=== PATIENT | male | born 1950 | race Caucasian/White ===

== ENCOUNTER 2022-06-23 09:21 | Emergency (ER) | payer OTHER, MEDICARE ==
[2022-06-23 09:36] VITALS: RESP 16; BMI 28.9
[2022-06-23 09:53] LABS: EPITHELIAL CELLS RARE /hpf
[2022-06-23] MEDS ORDERED: ACETAMINOPHEN 1000 MG/100 ML BAG IVPB ONE (10:05)
[2022-06-23] MEDS ORDERED: FAMOTIDINE 20 MG/50 ML IVPB 20 MG/50 ML MG IVPB ONE ×2 (10:13→10:39)
[2022-06-23] MEDS ORDERED: ONDANSETRON 4 MG/2 ML VIAL IVPUSH ONE (10:13)
[2022-06-23] MEDS ORDERED: ONDANSETRON 4 MG/2 ML VIAL ONE (10:38)
[2022-06-23] MEDS ORDERED: ACETAMINOPHEN INJECTION 100 ML IVPB ONE (10:39)
[2022-06-23 11:30] LABS: HEMATOCRIT 35.7 % (35.4-49); HEMOGLOBIN 12.4 G/dL (11.7-16.9); MCH 33.2 pg (25.7-33.7); MCHC 34.8 g/dl (32.0-35.9); MEAN CELL VOLUME 95.1 fl (80-96); MEAN PLT VOLUME 8.3 fl (7.5-11.1); PLATELET COUNT 279.4 10^3/uL (134-434); RBC 3.75 10^6/uL (4.00-5.60); RDW 13.8 % (11.9-15.9); WHITE BLOOD COUNT 8.2 10^3/uL (4.0-10.8)
[2022-06-23 11:45] LABS: CALCIUM 9.2 mg/dl (8.5-10); POTASSIUM 4.3 mmol/L (3.5-5.1)
[2022-06-23 11:48] LABS: ALBUMIN 3.4 g/dl (3.4-5.0); BILIRUBIN,TOTAL 1.8 mg/dl (0.2-1); CREATININE 1.4 mg/dl (0.55-1.3); TOT PROT 6.5 g/dl (6.4-8.2)
[2022-06-23] MEDS ORDERED: PIPERACILLIN/TAZOB 4.5 GM 4.5 GM/100 ML BAG IVPB ONE (12:49)
[2022-06-23] MEDS ORDERED: PIPERACILLIN/TAZOBACTAM 4.5 GM VIAL IVPB ONE (13:18)
[2022-06-23 14:34] VITALS: BP 140/84; PULSE 66; TEMP 97.9
== END 2022-06-23 19:10 | disposition short-term general hospital (02) ==
LOC: FER 09:21
PROC: 3E033GC Introduction of Other Therapeutic Substance into Peripheral Vein, Percutaneous Approach (ICD-10-PCS; principal; 2022-06-23)
PROC: 3E03329 Introduction of Other Anti-infective into Peripheral Vein, Percutaneous Approach (ICD-10-PCS; 2022-06-23)
PROC: 3E033GC Introduction of Other Therapeutic Substance into Peripheral Vein, Percutaneous Approach (ICD-10-PCS; 2022-06-23)
PROC: 3E033GC Introduction of Other Therapeutic Substance into Peripheral Vein, Percutaneous Approach (ICD-10-PCS; 2022-06-23)
DX: R10.11 Right upper quadrant pain (principal); R11.10 Vomiting, unspecified; R19.7 Diarrhea, unspecified; R94.5 Abnormal results of liver function studies; K81.9 Cholecystitis, unspecified; Z20.822 Contact with and (suspected) exposure to COVID-19
CPT/HCPCS: 0241U-QW; 36415; 71045-TC-FY; 76705-TC; 80053; 81003; 81015; 83605; 83690; 84484; 85027; 93005; 99285-25

== ENCOUNTER 2022-09-30 12:58 | Inpatient (IN) | payer OTHER, MEDICARE ==
[2022-09-30] MEDS ORDERED: SODIUM CHLORIDE 1,000 ML IV ONE (13:56)
[2022-09-30 14:25] LABS: INR 1.27 (0.83-1.09); PROTHROMBIN TIME (PATIENT) 14.7 SEC (9.7-13.0)
[2022-09-30 14:27] LABS: HEMATOCRIT 25.4 % (35.4-49); HEMOGLOBIN 8.4 G/dL (11.7-16.9); MCH 30.9 pg (25.7-33.7); MEAN CELL VOLUME 93.6 fl (80-96); MEAN PLT VOLUME 7.4 fl (7.5-11.1); PLATELET COUNT 225.4 10^3/uL (134-434); RBC 2.71 10^6/uL (4.00-5.60); RDW 18.3 % (11.9-15.9); WHITE BLOOD COUNT 7.6 10^3/uL (4.0-10.8)
[2022-09-30 14:31] LABS: ALBUMIN 3.2 g/dl (3.4-5.0); BLOOD UREA NITROGEN 34.3 mg/dl (7-18); CALCIUM 8.5 mg/dl (8.5-10.1); CREATININE 1.5 mg/dl (0.6-1.3); MAGNESIUM 1.6 mg/dL (1.8-2.4); POTASSIUM 4.1 mmol/L (3.5-5.1); SGOT/AST 49.6 U/L (15-37); SGPT/ALT 54.4 U/L (7-52); TOT PROT 6.1 g/dl (6.4-8.2)
[2022-09-30 14:46] LABS: PLATELET ESTIMATE ADEQUATE
[2022-09-30 15:49] LABS: EPITHELIAL CELLS RARE /hpf
[2022-09-30 15:57] LABS: BILIRUBIN,TOTAL 0.5 mg/dL (0.2-1)
[2022-09-30] MEDS ORDERED: REFRIGERATED ANITBIOTICS ONE (20:35)
[2022-09-30] MEDS ORDERED: DOCUSATE SODIUM 100 MG CAPSULE (FP) PO PRN (20:37)
[2022-09-30] MEDS ORDERED: MAGNESIUM SULFATE IN WATER 2 GM/50 ML IVPB IVPB ONE (20:38)
[2022-09-30] MEDS ORDERED: MAGNESIUM OXIDE 400 MG TABLET (FP) PO ONE (20:38)
[2022-09-30] MEDS: PANTOPRAZOLE 40 MG TABLET PO SCH (21:14)
[2022-09-30] MEDS: SODIUM CHLORIDE 1,000 ML IV SCH (21:15)
[2022-09-30 21:47] LABS: PHOSPHOROUS 3.59 (2.5-4.9)
[2022-10-01] MEDS: CEFTRIAXONE 1 GM in DEXTROSE 5%-WATER - 50 ML IVPB SCH (02:03)
[2022-10-01] MEDS ORDERED: LIPASE/PROTEASE/AMYLASE 36,000 UNIT CAPSULE PO PRN (03:27)
[2022-10-01] MEDS ORDERED: ONDANSETRON *ODT* 4 MG TABLET SL PRN (03:28)
[2022-10-01] MEDS ORDERED: LIPASE/PROTEASE/AMYLASE 36,000 UNIT CAPSULE PO SCH (08:00)
[2022-10-01] MEDS: LIPASE/PROTEASE/AMYLASE 36,000 UNIT CAPSULE PO SCH ×2 (08:43→12:00)
[2022-10-01] MEDS: PANTOPRAZOLE 40 MG TABLET PO SCH ×2 (09:42→21:14)
[2022-10-01] MEDS: FINASTERIDE 5 MG TABLET (FP) PO SCH (09:42)
[2022-10-01] MEDS: ALLOPURINOL 100 MG TABLET (FP) PO SCH (09:42)
[2022-10-01] MEDS ORDERED: OXYBUTYNIN CHLORIDE 5 MG TABLET PO SCH (10:00)
[2022-10-01 10:45] LABS: CALCIUM 8.3 mg/dl (8.5-10.1); CREATININE 1.3 mg/dl (0.6-1.3); MAGNESIUM 1.9 mg/dL (1.8-2.4); PHOSPHOROUS 3.23 (2.5-4.9); POTASSIUM 4.4 mmol/L (3.5-5.1)
[2022-10-01 12:20] LABS: BASO % 0.2 % (0-2.0); EOS % 1.1 % (0-4.5); HEMOGLOBIN 7.8 GM/dL (11.7-16.9); LYMPH % 8.6 % (8-40); MCH 30.6 pg (25.7-33.7); MCHC 33.9 g/dl (32.0-35.9); MEAN CELL VOLUME 90.3 fl (80-96); MEAN PLT VOLUME 7.9 fl (7.5-11.1); MONO % 0.6 % (3.8-10.2); NEUT % 89.5 % (42.8-82.8); PLATELET COUNT 208 10^3/uL (134-434); RBC 2.55 M/mm3 (4.00-5.60); RDW 17.9 % (11.9-15.9)
[2022-10-01] MEDS ORDERED: ZENPEP PO PRN (16:32)
[2022-10-01] MEDS: ZENPEP PO SCH (18:03)
[2022-10-01] MEDS ORDERED: ACETAMINOPHEN 325 MG TABLET (FP) PO PRN (20:37)
[2022-10-01] MEDS: SODIUM CHLORIDE 1,000 ML IV SCH (21:15)
[2022-10-02 09:16] LABS: HEMATOCRIT 23.1 % (35.4-49); HEMOGLOBIN 7.7 G/dL (11.7-16.9); MCH 31.3 pg (25.7-33.7); MCHC 33.4 g/dl (32.0-35.9); MEAN CELL VOLUME 94.1 fl (80-96); MEAN PLT VOLUME 7.2 fl (7.5-11.1); PLATELET COUNT 169.1 10^3/uL (134-434); RBC 2.46 10^6/uL (4.00-5.60); RDW 17.7 % (11.9-15.9); WHITE BLOOD COUNT 4.1 10^3/uL (4.0-10.8)
[2022-10-02] MEDS: FINASTERIDE 5 MG TABLET (FP) PO SCH (09:28)
[2022-10-02] MEDS: PANTOPRAZOLE 40 MG TABLET PO SCH ×2 (09:28→22:16)
[2022-10-02] MEDS: ALLOPURINOL 100 MG TABLET (FP) PO SCH (09:28)
[2022-10-02] MEDS: CEFTRIAXONE 1 GM in DEXTROSE 5%-WATER - 50 ML IVPB SCH (09:28)
[2022-10-02] MEDS: ZENPEP PO SCH ×3 (09:31→18:45)
[2022-10-02 09:32] LABS: ALBUMIN 2.8 g/dl (3.4-5.0); BLOOD UREA NITROGEN 27.3 mg/dl (7-18); CALCIUM 8.4 mg/dl (8.5-10.1); CREATININE 1.2 mg/dl (0.6-1.3); POTASSIUM 4.4 mmol/L (3.5-5.1); SGOT/AST 41.8 U/L (15-37); SGPT/ALT 52.7 U/L (7-52); TOT PROT 5.6 g/dl (6.4-8.2)
[2022-10-02 11:36] LABS: PLATELET ESTIMATE ADEQUATE
[2022-10-02 11:37] LABS: ANISOCYTOSIS 1+
[2022-10-02 11:49] LABS: BILIRUBIN,TOTAL 0.5 mg/dL (0.2-1)
[2022-10-02 13:58] VITALS: RESP 18
[2022-10-02 15:37] VITALS: BMI 26.1
[2022-10-03 08:49] VITALS: BP 135/64; PULSE 84; TEMP 98.2
[2022-10-03] MEDS: FINASTERIDE 5 MG TABLET (FP) PO SCH (09:14)
[2022-10-03] MEDS: PANTOPRAZOLE 40 MG TABLET PO SCH (09:14)
[2022-10-03] MEDS: ALLOPURINOL 100 MG TABLET (FP) PO SCH (09:14)
[2022-10-03] MEDS: CEFTRIAXONE 1 GM in DEXTROSE 5%-WATER - 50 ML IVPB SCH (09:15)
[2022-10-03] MEDS: ZENPEP PO SCH (09:15)
== END 2022-10-03 09:25 | disposition home or self-care (01) | DRG 690 ==
LOC: FER 12:58 → UNDOADMOB 16:03 → FM/S 16:03 → OBSVTOIN 10-02 11:53
PROVIDERS: ADMIT Internal Medicine; ATTEND Internal Medicine
DX: N39.0 Urinary tract infection, site not specified (principal); C25.7 Malignant neoplasm of other parts of pancreas; D61.9 Aplastic anemia, unspecified; R55 Syncope and collapse; B96.20 Unspecified Escherichia coli [E. coli] as the cause of diseases classified elsewhere; N18.9 Chronic kidney disease, unspecified; E83.42 Hypomagnesemia; E88.09 Other disorders of plasma-protein metabolism, not elsewhere classified; S00.03XA Contusion of scalp, initial encounter; W18.30XA Fall on same level, unspecified, initial encounter; Y92.89 Other specified places as the place of occurrence of the external cause
CPT/HCPCS: 36415; 70450-TC; 71045-TC-FY; 72125-TC; 80048; 80053; 81003; 81015; 82962; 83036; 83735; 84100; 84484; 85025; 85027; 85610; 86850; 86900; 86901; 87086; 87186; 93005; 99285-25; G0378